=== PATIENT | male | born 1970 | race Hispanic/Latino ===

== ENCOUNTER 2024-02-25 05:38 | Emergency (ER) | payer OTHER, SELFPAY ==
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
[2024-02-25 05:50] VITALS: BP 208/111; PULSE 86; RESP 14; TEMP 36.3; O2SAT 98; BMI 27.3
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
[2024-02-25 06:47] VITALS: BP 158/94; PULSE 79; RESP 16; O2SAT 97
== END 2024-02-25 06:52 | disposition home or self-care (01) ==
PROVIDERS: Emergency Provider Emergency Medicine
DX: M54.50 Low back pain, unspecified (principal); V43.52XA Car driver injured in collision with other type car in traffic accident, initial encounter
CPT/HCPCS: 72100; 99281; 99282